=== PATIENT | female | born 1955 | race Caucasian/White ===

== ENCOUNTER 2020-10-30 10:51 | Outpatient (CLI) | payer OTHER, SELFPAY ==
--- NOTE | ~2020-10-30 | XR_ITS ---
EXAMINATION: XR hand BI arthritis min 3V EXAM DATE: 10/30/2020 11:18 INDICATION: M19.90 - Unspecified osteoarthritis, unspecified site. TECHNIQUE: Right hand frontal, lateral and oblique projections obtained and reviewed. Left hand fron nicole, lateral and oblique projections obtained and reviewed. Catchers projection of both hands. There is no prior study for comparison. FINDINGS: Right hand: There is moderate 3rd proximal interphalangeal primary osteoarthritis. Otherwise no more than mild polyarticular primary osteoarthritis. There are no bony erosions identified. There are no acute fractures identified. No radiopaque foreign bodies identified. Ulnar minus variance. Left hand: No more than mild polyarticular primary osteoarthritis. There are no bony erosions identif ied. There are no acute fractures identified. Ulnar minus variance. IMPRESSION: 1. Polyarticular osteoarthritis, moderate at the right 3rd PIP joint. 2. Bilateral ulnar minus variance. Reviewed, dictated and finalized at location B.
--- NOTE | ~2020-10-30 | XR_ITS ---
EXAMINATION: XR sacroiliac joints min 3V EXAM DATE: 10/30/2020 11:18 INDICATION: L40.50 - Arthropathic psoriasis, unspecified . TECHNIQUE: Sacroiliac frontal, bilateral oblique projections. There is no prior study for compariso n. FINDINGS: There is moderate symmetric bilateral sacroiliac primary osteoarthritis. No erosions, anky losis or appreciable sclerosis. Sacrum, sacroiliac joints, sacral arcuate lines are intact. Hip joint s appear to have mild symmetric primary osteoarthritis. The soft tissue is unremarkable. IMPRESSION: 1. Moderate sacroiliac osteoarthritis. 2. Mild hip osteoarthritis. Reviewed, dictated and finalized at location B.
--- NOTE | ~2020-10-30 | XR_ITS ---
XR lumbar spine min 4V 10/30/2020 11:18 Indication: Low back pain Procedure: 5 views lumbar spine Comparison: No prior studies for comparison. Findings: Vertebral body heights are maintained. There is disc narrowing at L3-4. Pedicles intact. No evidence for spondylolisthesis. There is mild facet degenerative change of the lower lumbar spine. T here is mild atherosclerosis. No abnormal calcifications. Visualized bowel gas pattern is nonobstruct elton. Impression: 1: Mild lumbar spondylosis. Reviewed, dictated and finalized at location A. Impression: 1: Mild lumbar spondylosis.
[2020-10-30 11:46] LABS: Hematocrit 39.9 % (37.0-47.0); Hemoglobin 12.8 g/dL (12.0-15.0); Mean Corpuscular HGB Conc 32.1 g/dl (32-36); Mean Corpuscular Hemoglobin 29.6 pg (26-34); Mean Corpuscular Volume 92.1 fl (80-100); Mean Platelet Volume 8.7 fl (7.4-10.4); Platelet Count Result 297 k/mm3 (150-375); Red Blood Count 4.33 M/mm3 (4.2-5.4); Red Cell Distribution Width 13.7 % (11.5-14.5); White Blood Count 6.6 K/mm3 (4.5-10.0)
[2020-10-30 12:08] LABS: Alanine Aminotransferase 40 U/L (4-35); Albumin Level 4.5 g/dL (3.5-5.1); Alkaline Phosphatase 84 U/L (38-126); Anion Gap 10 mmol/L (8-16); Aspartate Amino Transferase 46 U/L (14-36); Bilirubin,Total 0.4 mg/dL (0.2-1.3); Blood Urea Nitrogen 16 mg/dL (7-17); CRP 0.8 mg/dL (<1.0); Calcium 9.8 mg/dL (8.4-10.2); Carbon Dioxide 27 mmol/L (22-30); Chloride 105 mmol/L (98-107); Estimated Glomerular Filt Rate > 60; Glucose 110 mg/dL (65-110); Potassium 4.5 mmol/L (3.4-5.0); Sodium 142 mmol/L (137-145)
[2020-10-30 12:23] LABS: Erythrocyte Sedimentation Rate 26 mm/hr (0-20)
[2020-10-30 12:33] LABS: Rheumatoid Factor < 8.6 IU/ML (<12)
[2020-10-30 12:54] LABS: Hepatitis B Surface Antigen Negative (Negative)
[2020-10-30 13:10] LABS: Hepatitis C Virus Antibody Negative (Negative)
[2020-10-30 13:11] LABS: Hepatitis B Surface Anti Res Negative
[2020-11-02 10:08] LABS: Anti Cyclic Citrullinated Pept <16 Units (<20)
[2020-11-02 12:34] LABS: NIL 0.02 IU/mL; Quantiferon TB Plus, 1T NEGATIVE (NEGATIVE); TB1-NIL <0.00 IU/mL; TB2-NIL <0.00 IU/mL
== END 2020-10-30 10:52 | disposition home or self-care (01) ==
LOC: ANHLAB 10:54
PROVIDERS: PCP Internal Medicine; Visit Provider Internal Medicine
DX: M19.90 Unspecified osteoarthritis, unspecified site (principal); L40.50 Arthropathic psoriasis, unspecified; Z11.59 Encounter for screening for other viral diseases; Z51.81 Encounter for therapeutic drug level monitoring; Z79.899 Other long term (current) drug therapy; Z01.84 Encounter for antibody response examination; M47.817 Spondylosis without myelopathy or radiculopathy, lumbosacral region; M19.042 Primary osteoarthritis, left hand; M19.041 Primary osteoarthritis, right hand
CPT/HCPCS: 36415; 72110; 72202; 73130; 80053; 85027; 85652; 86038; 86140; 86200; 86430; 86480; 86706; 86803; 87340

== ENCOUNTER 2022-09-01 01:04 | Day surgery (SDC) | payer MEDICARE, SELFPAY ==
[2022-08-26 09:48] VITALS: BMI 36.6
--- NOTE | 2022-08-26 10:06 | PC.NURSE ---
Report to the Outpatient Waiting Room, entrance under the green pavilion located off [facility], at time __0915 on date _08/2422___. Planned Procedure Time: __1115 . Time changes happen often and if your time is changed the preop area will call you the afternoon before. - You and your visitor will be asked to self-screen and do not enter if you have any COVID symptoms. - A mask is optional within the hospital at this time. Patients may have clear liquids (water, carbonated beverages, clear teas, apple juice) until 3 hours prior to surgery (0815 AM) with a maximum of 20 ounces. - No food from midnight until time of surgery - Infants may have breast milk until 4 hours before surgery, formula 6 hours prior to surgery. - Children will be allowed to drink immediately following surgery. If applicable, please bring a bottle or sippy cup to assist with drinking. Juice, water, soda, and popsicles are readily available. For infants on formula, please bring formula the day of surgery. Pacifiers are allowed. Take the following medications with a SIP of water the morning of surgery: _ALPRAZOLAM, BUPROPION, BUSPIRONE, CARBIDOPA-LEVODOPA, CITALOPRAM, METOPROLOL_ DO NOT STOP ANY OF YOUR OTHER PRESCRIPTION MEDICATIONS PRIOR TO SURGERY ?EXCEPT THE FOLLOWING Medications to discontinue - _ASPIRIN PER DR. RAMSAY'S INSTRUCTIONS__ Medications to discontinue per ANESTHESIA - _MULTIVITAMIN 3 DAYS PRIOR TO SURGERY, Date to take last dose 08/28/22_ Please no make-up, nail cymro, hairspray, perfume, deodorant, or body powder the day of surgery. No jewelry (including any body piercings) or valuables the day of surgery, leave them at home. Please take a shower or bath the night before, or the morning of, surgery with an antibacterial soap. Wear comfortable, loose fitting clothing. Children are encouraged to wear pajamas. - Jewelry must be removed prior to entering the operating room. Rings and piercings that are not removed may be cut off. - The hospital will not accept responsibility for valuables. - Please leave all valuables, including medications, at home the day of surgery. If you are going home after surgery, a licensed hyster driver must drive you home. - NO public transportation without another adult if you receive anesthesia. - We recommend that an adult stay with you for 24 hours following discharge. - We also recommend that you do not drive, make important decision, drink alcoholic beverages, or take any drugs that were not prescribed by your health care provider for at least 24 hours after your discharge time. For Pediatric surgeries, we recommend two adults accompany the child home. Follow any additional instructions given to you from your surgeon. If you or anyone in your household have experienced Covid symptoms in the past week, please notify your surgeon or the nurse liaison at the phone number below for possible testing. Telephone instructions given to ____PT and asked if any additional questions and then verbalized understanding. Patient advised to call surgeon office or pre surgery nurse liaison [phone] if any additional questions.
--- NOTE | 2022-08-29 18:17 | P.PNAN_ITS ---
Anes - Eval Pre Procedure Procedure: Operation Date: 09/01/22 10:30 Proposed Procedures p Hysteroscopy Dilation and Curettage - Pilar Beatty MD Date/Time: 08/29/22 18:17 Pre Op Diagnosis: thickened endometrium Patient Data Age: 66 Gender: F Height: 1.57 m Weight: 90.9 kg Allergies Allergy/AdvReac Type Severity Reaction Status Date / Time moxifloxacin [From Avelox] Allergy Unknown Rash Verified 08/26/22 09:39 terbinafine [From Lamisil] Allergy Unknown muscle Verified 08/26/22 09:39 weakness Home Medications Medication Instructions Recorded Confirmed Type albuterol sulfate 90 mcg/actuation 2 inh inhalation Q4H PRN Wheezing 09/24/20 08/26/22 History breath activated powder inhaler alprazolam 0.25 mg tablet 0.25 mg PO DAILY PRN Anxiety 09/24/20 08/26/22 History aspirin 81 mg tablet,delayed 81 mg PO DAILY 09/24/20 08/26/22 History release (Adult Low Dose Aspirin) cholecalciferol (vitamin D3) 50 50 mcg PO DAILY 09/24/20 08/26/22 History mcg (2,000 unit) capsule citalopram 40 mg tablet 20 mg PO DAILY 09/24/20 08/26/22 History montelukast 10 mg tablet 10 mg PO DAILY 09/24/20 08/26/22 History multivitamin-ferrous 1 tablet PO DAILY 09/24/20 08/26/22 History fumarate-folic acid 18 mg-400 mcg tablet (Centrum Women) bupropion HCl 150 mg 24 hr tablet, 150 mg PO QAM 03/19/21 08/26/22 History extended release apremilast 30 mg tablet (Otezla) 30 mg PO BID #180 tabs 08/21/21 08/26/22 Rx buspirone 7.5 mg tablet 7.5 mg QAM 08/26/22 08/26/22 History carbidopa 25 mg-levodopa 100 mg See Rx Instructions .Route .COMPLEX 08/26/22 08/26/22 History tablet metoprolol succinate 25 mg 25 mg PO DAILY 08/26/22 08/26/22 History tablet,extended release 24 hr naproxen 500 mg tablet 500 mg PO BID PRN Pain 08/26/22 08/26/22 History pantoprazole 40 mg tablet,delayed 40 mg PO DAILY 08/26/22 08/26/22 History release Patient hx anesthesia problems: none Family hx anesthesia problems: none Results Review: All pre-operative results and documents have been reviewed as part of the pre- operative evaluation. [facility] Past Medical History Medical History (Updated 08/29/22 @ 18:19 by Vanessa Sharma CRNA) Allergies Anxiety Asthma Breast cancer, left Depression Diabetes Encounter for medication management Obesity (BMI 30-39.9) Parkinsons Psoriatic arthritis Rheumatoid arthritis Stress incontinence of urine Tachycardia Family History Family History Father Heart disease Hypertension Mother Hypertension Depression Heart disease Social History Social History Smoking status: Never smoker Second hand tobacco smoke exposure: No Alcohol intake: never Alcohol use details: occasional Substance use: never Substance use type: does not use Living arrangements: alone Occupation/Education: retired Spiritual care concerns: No Exam Day of Procedure 08/29/22 18:17
--- NOTE | 2022-09-01 07:37 | WPDHPUPDATE1 ---
History and Physical Update Update Date/Time: 09/01/22 07:37 History and Physical has been reviewed, including an updated exam of the patient. There are NO changes in the patient's condition. Risks, benefits, and alternatives have been discussed and questions answered. Patient agrees to proceed with procedure.
--- NOTE | 2022-09-01 07:37 | PM.HPGS ---
History of Present Illness History of Present Illness Consent: Risks, benefits, and alternatives have been discussed and questions answered. Patient agrees to proceed with procedure. Chief complaint: thickened endometrium Narrative: Mee Busch is a 66 year old female with thickened endometrium found on the CT scan. Follow-up pelvic ultrasound reveals the endometrium to be 1.5cm. It was recommended to proceed with D&C hysteroscopy. Risks of infection, bleeding, perforation, and possible pathology are reviewed. Patient voices understanding and has agreed to proceed. Patient has received clearance from her oncologist. Review of Systems Review of Systems: not repeated day of surgery; patient states no changes in status [facility] Past Medical History Medical History (Updated 09/01/22 @ 07:41 by Pilar Beatty MD) Allergies Anxiety Asthma Breast cancer, left Depression Diabetes Encounter for medication management Obesity (BMI 30-39.9) Parkinsons Psoriatic arthritis Rheumatoid arthritis Sleep apnea Stress incontinence of urine Tachycardia Surgical History Surgical History (Updated 09/01/22 @ 07:40 by Pilar Beatty MD) History of breast implant 1985 Hx of left breast biopsy stage III B breast cancer Family History Family History Father Heart disease Hypertension Mother Hypertension Depression Heart disease Social History Social History Smoking status: Never smoker Second hand tobacco smoke exposure: No Alcohol intake: never Alcohol use details: occasional Substance use: never Substance use type: does not use Living arrangements: alone Occupation/Education: retired Spiritual care concerns: No Meds Home Medications and Allergies Home Medications Medication Instructions Recorded Confirmed Type albuterol sulfate 90 mcg/actuation 2 inh inhalation Q4H PRN Wheezing 09/24/20 08/26/22 History breath activated powder inhaler alprazolam 0.25 mg tablet 0.25 mg PO DAILY PRN Anxiety 09/24/20 08/26/22 History aspirin 81 mg tablet,delayed 81 mg PO DAILY 09/24/20 08/26/22 History release (Adult Low Dose Aspirin) cholecalciferol (vitamin D3) 50 50 mcg PO DAILY 09/24/20 08/26/22 History mcg (2,000 unit) capsule citalopram 40 mg tablet 20 mg PO DAILY 09/24/20 08/26/22 History montelukast 10 mg tablet 10 mg PO DAILY 09/24/20 08/26/22 History multivitamin-ferrous 1 tablet PO DAILY 09/24/20 08/26/22 History fumarate-folic acid 18 mg-400 mcg tablet (Centrum Women) bupropion HCl 150 mg 24 hr tablet, 150 mg PO QAM 03/19/21 08/26/22 History extended release apremilast 30 mg tablet (Otezla) 30 mg PO BID #180 tabs 08/21/21 08/26/22 Rx buspirone 7.5 mg tablet 7.5 mg QAM 08/26/22 08/26/22 History carbidopa 25 mg-levodopa 100 mg See Rx Instructions .Route .COMPLEX 08/26/22 08/26/22 History tablet metoprolol succinate 25 mg 25 mg PO DAILY 08/26/22 08/26/22 History tablet,extended release 24 hr naproxen 500 mg tablet 500 mg PO BID PRN Pain 08/26/22 08/26/22 History pantoprazole 40 mg tablet,delayed 40 mg PO DAILY 08/26/22 08/26/22 History release Allergies Allergy/AdvReac Type Severity Reaction Status Date / Time moxifloxacin [From Avelox] Allergy Unknown Rash Verified 08/26/22 09:39 terbinafine [From Lamisil] Allergy Unknown muscle Verified 08/26/22 09:39 weakness Exam Const: General: healthy appearing and alert Orientation/consciousness: patient oriented x3 Resp: Effort & Inspection: normal respiratory effort GI: GI Palp: Yes Soft to palpation, No Tenderness to palpation present (GI) and No Palpable mass present : External Female Exam: normal external appearance Speculum Exam - Vagina: normal appearance of the vagina and normal vaginal discharge Speculum Exam - Cervix: normal appearance of the cervix Bimanual exam- vagina
[2022-09-01 08:49] VITALS: BP 127/72; PULSE 87; RESP 16; TEMP 36.3; O2SAT 100
--- NOTE | 2022-09-01 09:04 | P.PNAN_ITS ---
Anes - Eval Final PreProcedure Day of Procedure 09/01/22 09:04 Patient weight: obese Heart: regular rate and rhythm Lungs: clear to auscultation Airway: Mallampati scale class II Neurological: alert and oriented Last oral intake: >/= 8 hours ASA classification: IV Emergent: no Anesthetic plan: proceed Anesthesia type and monitoring: general GIVS and standard monitoring Results Review: All pre-operative results and documents have been reviewed as part of the pre- operative evaluation. Informed Consent: The patient's anesthetic plan and its attendant risks and benefits were discussed with the patient/family/POA. Questions were solicited and answers provided to the satisfaction of the patient/family/POA.
[2022-09-01] MEDS: ACETAMINOPHEN 500 MG TABLET 1000 MG PO (09:09)
[2022-09-01] MEDS: LACTATED RINGERS 1,000 ML 30 ML IV CONT (09:35)
[2022-09-01] MEDS: KETOROLAC 15 MG/ML VIAL (*BKC) IV PUSH (10:50)
--- NOTE | 2022-09-01 10:55 | W.PM.PROC2 ---
Procedure Note - Detailed Date of Procedure 09/01/22 Pre-op Diagnosis thickened endometrium Post-op Diagnosis Same Procedure Performed D&C hysteroscopy with resection of endometrial polyps Surgeon Pilar Beatty MD Anesthesia MAC Findings uterus sounds to 7cm; there are multiple large polyps filling the endometrial cavity; background endometrium was atrophic Description of Procedure The patient is taken to the operating room and placed under anesthesia in the dorsal lithotomy position. She was prepped and draped in the usual sterile fashion. [place] speculum was placed in the vagina and the cervix grasped on the anterior lip with a tenaculum. The uterus is sounded to 7cm. The diagnostic hysteroscope was placed and with multiple polyps noted the resection device is opened and placed. Under direct visualization the polyps were removed in their entirety. The hysteroscope was removed and the sharp curette used to curette the endometrium until a good uterine cry was noted in all areas. Minimal material was obtained consistent with the atrophic appearance. All instruments are removed. Sponge, needle, and instrument counts are correct per the OR staff. Patient is awakened from anesthesia and taken to recovery in stable condition. Estimated Blood Loss 5 Drains No Packing No Pathology Yes ( Endometrial shavings and curettings) Complications No immediate complications Condition Stable Disposition PACU
[2022-09-01 10:58] VITALS: BP 122/80; PULSE 64; RESP 16; O2SAT 100
[2022-09-01 11:30] VITALS: BP 122/80; PULSE 64; RESP 16; O2SAT 100
[2022-09-01 12:00] VITALS: BP 120/66; PULSE 62; RESP 16
[2022-09-01 12:16] VITALS: BP 114/52; PULSE 71; RESP 16
== END 2022-09-01 12:20 | disposition home or self-care (01) ==
PROVIDERS: PCP Internal Medicine; Visit Provider Obstetrics & Gynecology Gynecology
PROC: 0U5B8ZZ Destruction of Endometrium, Via Natural or Artificial Opening Endoscopic (ICD-10-PCS; CPT 58563; principal; 2022-09-01 10:30)
DX: N84.0 Polyp of corpus uteri (principal); J45.909 Unspecified asthma, uncomplicated; E11.9 Type 2 diabetes mellitus without complications; M06.9 Rheumatoid arthritis, unspecified; L40.50 Arthropathic psoriasis, unspecified; F32.A Depression, unspecified; F41.9 Anxiety disorder, unspecified; G20 Parkinson's disease; Z85.3 Personal history of malignant neoplasm of breast; Z79.51 Long term (current) use of inhaled steroids; Z79.82 Long term (current) use of aspirin
CPT/HCPCS: 58558; 88305; A9270; J1100; J1885; J2250; J2405; J2704; J3010; J7120